=== PATIENT | male | born 1970 | race Caucasian/White ===

== ENCOUNTER 2022-03-17 11:33 | Emergency (ER) | payer OTHER ==
[~2022-03-17] VITALS: Ht 162.6 cm; Wt 77.0 kg
[2022-03-17] MEDS ORDERED: 0.9% SODIUM CHLORIDE 10 ML SYRINGE IVP PRN (12:00)
[2022-03-17 12:10] LABS: BASOPHILS % (AUTO) 0.3 % (0.0-2.0); EOSINOPHILS % (AUTO) 0.8 % (1.0-6.0); HEMATOCRIT 47.2 % (41-53); HEMOGLOBIN 15.7 g/dL (13.5-17.5); LYMPHOCYTES # (AUTO) 1.3 K/uL (1.0-4.8); LYMPHOCYTES % (AUTO) 19.8 % (22.0-44.0); MEAN CORPUSCULAR HEMOGLOBIN 28.9 pg (26.0-34.0); MEAN CORPUSCULAR HGB CONC 33.2 G/dL (31.0-37.0); MEAN CORPUSCULAR VOLUME 87 fL (80-100); MONOCYTES # (AUTO) 0.7 K/uL (0.1-1.0); MONOCYTES % (AUTO) 11.7 % (2.0-9.0); NEUTROPHILS # (AUTO) 4.3 K/uL (1.8-7.7); NEUTROPHILS % (AUTO) 67.4 % (40.0-70.0); PLATELET COUNT (AUTO) 198 K/uL (150-450); RED BLOOD CELL COUNT(AUTO) 5.42 MIL/uL (4.50-5.90); RED CELL DISTRIBUTION WIDTH 13.4 % (11.5-14.5)
[2022-03-17 12:20] LABS: COVID AG,FIA SOURCE NASAL SWAB
[2022-03-17 12:23] LABS: PROTHROMBIN TIME 10.7 SEC (9.4-11.6)
[2022-03-17 12:30] LABS: ANION GAP 7 mmol/L (8-16); CALCIUM, TOTAL 8.7 mg/dL (8.8-10.5); CARBON DIOXIDE 28 mmol/L (22-29); CHLORIDE 98 mmol/L (98-107); CREATININE 1.08 mg/dL (0.60-1.30); GLOMERULAR FILTR. RATE CALC > 60 mL/min (>60); GLUCOSE,RANDOM 219 mg/dL (70-110); POTASSIUM 3.5 mmol/L (3.5-5.1); SODIUM SERUM 133 mmol/L (136-145); UREA NITROGEN, BLOOD 12 mg/dL (7-18)
[2022-03-17] MEDS ORDERED: CefTRIAXone 1 GM/DEXTROSE 50 ML IV ONE (12:30)
[2022-03-17] MEDS ORDERED: AZITHROMYCIN 500 MG/NS 250 ML IV ONE (12:30)
[2022-03-17 12:35] LABS: ALANINE AMINOTRANSFERASE 86 U/L (12-78); ALBUMIN 3.9 g/dL (3.4-5.0); ALKALINE PHOSPHATASE 105 U/L (46-116); ASPARTATE AMINOTRANSFERASE 31 U/L (15-37); BILIRUBIN,TOTAL 0.4 mg/dL (0.1-1.0); TOTAL PROTEIN, SERUM 7.8 g/dL (6.4-8.2)
[2022-03-17 12:41] LABS: INFLUENZA TYPE A NEGATIVE FOR TYPE A (NEGATIVE); INFLUENZA TYPE B NEGATIVE FOR TYPE B (NEGATIVE)
[2022-03-17] MEDS ORDERED: IBUPROFEN 600 MG TABLET PO ONE (12:45)
[2022-03-17] MEDS ORDERED: ACETAMINOPHEN 500 MG TABLET PO ONE (12:45)
[2022-03-17] MEDS ORDERED: GuaiFENesin/CODEINE [SUGAR FREE] 200-20MG/10 ML SYRUP UDCUP PO ONE (12:45)
[2022-03-17] MEDS ORDERED: IBUP-1554 PO (13:06)
[2022-03-17] MEDS ORDERED: CODE10LI PO (13:06)
[2022-03-17 13:16] VITALS: BP 122/80
== END 2022-03-17 13:28 | disposition home or self-care (01) ==
LOC: EMS 11:33
DX: U07.1 COVID-19 (principal); J20.8 Acute bronchitis due to other specified organisms; J06.9 Acute upper respiratory infection, unspecified; R07.89 Other chest pain; E11.65 Type 2 diabetes mellitus with hyperglycemia; I10 Essential (primary) hypertension; Z20.822 Contact with and (suspected) exposure to COVID-19
CPT/HCPCS: 71045; 80053; 82962; 83605; 85025; 85610; 87040; 87804; 93005; 99285; J0456; J0696; 36415-L1; 36415-TC

== ENCOUNTER 2022-03-23 10:16 | Emergency (ER) | payer OTHER ==
[~2022-03-23] VITALS: Ht 165.1 cm; Wt 75.0 kg
[~2022-03-23 10:16] MED LIST: CODE10LI PO; IBUP-1554 PO
[2022-03-23 10:17] VITALS: BP 131/77
[2022-03-23] MEDS ORDERED: GUAI118S13 PO (10:21)
[2022-03-23] MEDS ORDERED: BENZONATATE 100 MG CAPSULE PO ONE (10:45)
[2022-03-23] MEDS ORDERED: BENZ-70 PO (10:56)
== END 2022-03-23 11:02 | disposition home or self-care (01) ==
LOC: EMS 10:16
DX: U07.1 COVID-19 (principal); E11.9 Type 2 diabetes mellitus without complications; F10.20 Alcohol dependence, uncomplicated; I10 Essential (primary) hypertension
CPT/HCPCS: 99283